=== PATIENT | male | born 1955 | race Caucasian/White ===

== ENCOUNTER → 2021-03-08 13:26 | Outpatient (BNVA) | payer BC, SELFPAY | PROVIDERS: PCP Internal Medicine; Visit Provider Hospitalist ==

== ENCOUNTER 2021-03-24 04:00 | Emergency (ER) | payer BC, SELFPAY ==
[2021-03-24 04:04] VITALS: BP 144/80; PULSE 100; RESP 16; TEMP 35.8; O2SAT 98; BMI 28.5
[2021-03-24 05:00] LABS: COVID-19 Test Negative (Negative); IDNOW Serial# 9DD0AD1C
--- NOTE | 2021-03-24 05:08 | ED.SKABFB ---
HPI - Skin/Abscess/Foreign Bdy General Chief complaint: Allergic Reaction Stated complaint: allergic reaction? body covered in hives Time Seen by Provider: 03/24/21 04:18 Source: patient Mode of arrival: ambulatory History of Present Illness HPI narrative: 65-year-old male with history of psoriasis presents with noting a rash to his bilateral upper and lower extremities as well as his back an abdomen that started yesterday at 11:00 a.m.. He denies any recent changes or adjustments in his medications, denies any new food consumption and denies any associated lotion/so/colognes/closing/laundry detergent and denies fever, chills, lip/tongue/facial swelling and denies any shortness of breath or chest pain/palpitations. Patient states that he is been itching nonstop and took 2 doses of 25 mg of Benadryl yesterday. Related Data Home Medications Medication Instructions Recorded Confirmed azelastine 137 mcg (0.1 %) nasal 2 spray INTRANASAL BID 03/08/21 spray aerosol epinephrine 0.3 mg/0.3 mL IM ONCE 03/08/21 injection, auto-injector hydrochlorothiazide 25 mg tablet 25 mg PO DAILY 03/08/21 losartan 100 mg tablet 100 mg PO DAILY 03/08/21 Previous Rx's Medication Instructions Recorded prednisone 20 mg tablet 20 mg PO DAILY #3 tab 03/24/21 Allergies Allergy/AdvReac Type Severity Reaction Status Date / Time No Known Allergies Allergy Verified 03/24/21 04:09 Review of Systems Review of Systems: Pertinent positives and negatives as stated in HPI 10 point review of systems is otherwise negative. [facility] Past Medical History Source: nursing notes reviewed Medical History Asbestos-induced pleural plaque Bronchiectasis Emphysema of lung Psoriasis Pulmonary nodule Social History Social History Patient Tobacco Use Status: Former Tobacco user Advance Directives: No Physical Exam Vital Signs: Vital Signs: Last Vital Signs Temp 98.3 F 03/24/21 05:52 Pulse 97 03/24/21 07:08 Resp 16 03/24/21 07:08 BP 156/88 H 03/24/21 07:08 Pulse Ox 97 03/24/21 07:08 BMI result Body Mass Index 28.5 VITAL SIGNS: Reviewed. GENERAL: Well developed, well nourished, in no acute distress. HEAD: Normocephalic/atraumatic EYES: PERRLA, EOMI intact without pain, no nystagmus/pallor/icterus noted OROPHARYNX: no oral lesions noted, posterior pharynx clear NECK: Supple, no adenopathy LUNGS: Normal breath sounds. No adventitious sounds or accessory muscle use. SpO2<97> CARDIOVASCULAR: Regular rate and rhythm without noted murmurs, no JVD or lower extremity edema. ABDOMEN: Soft, non-tender, non-distended with bowel sounds. MUSCULOSKELETAL: No tenderness, deformities, or effusions noted on gross inspection. EXTREMITIES: No cyanosis, clubbing or edema. SKIN: Inspection of the skin reveals rash 2 proximal arms and legs as well as stomach and back without jaundice NEUROLOGIC: Alert and oriented x 4. Strength and sensation to light touch were grossly intact x 4. Course Course Course Narrative: 65-year-old male with history and clinical presentation consistent with possible psoriatic rash, patient will be treated with empiric prednisone and Benadryl this time and strongly encouraged follow-up with his mailroom coordinator. Patient discharged home in stable condition. MDM - Skin/Abscess/Foreign Bdy Lab Data Labs: Lab Results 03/24/21 Range/Units 04:35 COVID-19 (FERNANDO) Negative (Negative) COVID-19 Clin Com See Note Discharge Plan Discharge Clinical Impression: Rash Patient Disposition: Home, Self-Care Instructions: Acute Rash (ED) Additional Instructions: 1. Resume all home medications as prescribed. 2. Recommend using [id number] Benadryl as directed on the outside packaging over the next 24 hours, but you should contact your primary care provider/mailroom coordinator this morning for a follow-up appointment. Return to the ER for worsening symptoms. Prescriptions: New prednisone 20 mg tablet 20 mg PO DAILY Qty: 3 RF: 0 No Action losartan 100 mg tablet 100 mg PO DAILY RF: 0 hydrochlorothiazide 25 mg tablet 25 mg PO DAILY RF: 0 epinephrine 0.3 mg/0.3 mL auto-injector IM ONCE RF: 0 azelastine 137 mcg (0.1 %) aerosol,spray 2 spray intranasal BID RF: 0 Interventions: ED Discharge Assessment Last Done: 03/24/21 07:11 Discharge Date/Time: 03/24/21 07:12
[2021-03-24 05:52] VITALS: BP 151/87; PULSE 110; RESP 17; TEMP 36.8; O2SAT 96
[2021-03-24] MEDS: predniSONE 20 MG TABLET PO (06:23)
--- NOTE | 2021-03-24 06:26 | PC.NURSE ---
pt refused benadryl so that he would be able to drive himself home, states he will take 50mg benadryl when he gets home. dr valencia aware.
[2021-03-24 07:08] VITALS: BP 156/88; PULSE 97; RESP 16; O2SAT 97
== END 2021-03-24 07:12 | disposition home or self-care (01) ==
PROVIDERS: Emergency Provider Student in an Organized Health Care Education/Training Program
DX: R21 Rash and other nonspecific skin eruption (principal); Z20.822 Contact with and (suspected) exposure to COVID-19
CPT/HCPCS: 87635; 99283; Q0163

== ENCOUNTER 2021-10-28 15:12 | Outpatient (REF) | payer BC, MEDICARE, SELFPAY ==
--- NOTE | ~2021-10-28 | CT_ITS ---
EXAMINATION: CT CHEST WITHOUT CONTRAST CLINICAL INFORMATION: Follow-up pulmonary nodule and pleural plaques COMPARISON: Previous chest CT December 2015 TECHNIQUE: Multidetector volumetric CT imaging of the chest was done. Axial MIP volume rendering provided. Sagittal and coronal reformatted images were obtained. This CT examination was performed using dose optimization techniques as appropriate, variously including the following: *Automated exposure control *Adjustment of mA and/or kV according to patient size (this includes techniques or standardized protocols for targeted exams where dose is matched to indication/reason for exam; i.e. extremities or head) *Use of iterative reconstruction technique DLP: 251 mGy-cm FINDINGS: LUNGS: There is biapical pleural and parenchymal scarring. There is mild paraseptal emphysema. There is a 3 mm calcified right upper lobe nodule axial image 3 1 series 12. There is a 2 mm right upper lobe nodule axial image 100 series 12. There is a 4 mm partially calcified peripheral or subpleural left upper lobe nodule axial image 145 series 12. There is scarring or subsegmental atelectasis at both lung bases. No endobronchial or endotracheal lesion is seen. No evidence of emphysema or significant interstitial lung disease. MEDIASTINUM: Small mediastinal lymph nodes. No enlarged lymph nodes. Coronary artery calcification. The mediastinum is otherwise normal. PLEURA: Bilateral calcified and noncalcified pleural plaques that are stable. No pleural effusion. AXILLA: No lymphadenopathy. UPPER ABDOMEN: Unremarkable. OSSEOUS STRUCTURES: There are degenerative changes of the spine. There is slight loss of height of T11 vertebral body that is stable. CT/CT chest wo con IMPRESSION: Stable calcified and noncalcified pleural plaques. Stable small pulmonary nodules. Coronary artery calcification. Fleischner guidelines were followed.
== END 2021-10-28 15:13 | disposition home or self-care (01) ==
LOC: HO.CT 15:12
PROVIDERS: PCP Internal Medicine; Visit Provider Hospitalist
DX: J92.0 Pleural plaque with presence of asbestos (principal); R91.1 Solitary pulmonary nodule; J47.9 Bronchiectasis, uncomplicated
CPT/HCPCS: 71250

== ENCOUNTER 2022-12-12 14:32 | Outpatient (AMB) | payer BC, SELFPAY ==
[2022-12-12 14:36] VITALS: PULSE 82; O2SAT 94
--- NOTE | 2022-12-12 14:36 | MHC.OFFVIS ---
Intake Vital Signs 12/12/22 14:36 Height 5 ft 11 in Weight 215 lb BMI 30.0 Pulse 82 Pulse Source Pulse Oximeter Pulse Oximetry (%) 94 Oxygen Delivery Method Room Air Intake Visit Reasons: Pulmonary nodule Venereal Disease Investigator Required: No Allergies ibuprofen Allergy (Severe, Verified 12/12/22 14:37) Hives HPI HPI Comments History of Present Illness Details The patient is a 67-year-old gentleman, former smoker was found to have abnormal CT scan of the chest. as a young man the patient did work with this has been fixing replacing both ears and exposed to significant amount of asbestos throughout his life. Patient also did have. Where he was smoking cigarettes. However he quickly stopped many years ago. He did have a CT scan of the chest initially at [facility] back in 2016 demonstrating the evidence of the asbestos related lung disease along with pulmonary nodules. Later on he had a repeat CT scan of the chest done at [place] which demonstrated multiple pulmonary nodules subcentimeter in size along with the asbestos related lung disease. He was also documented patient had some degree of bronchiectasis and also small hiatal hernia. His last CT scan of the chest was done back in August 2020 demonstrating similar findings. He also underwent pulmonary function studies which were personally by me demonstrating no obstructive ventilatory defects and a low normal total lung capacity. The patient also had a mild diffusion impairment likely secondary to the underlying parenchymal disease. At this point the patient has been doing well and staying active. He does not use any respiratory therapy in on believe he would benefit from any at this time. In regards of the bronchiectasis the patient denies any productive cough or chest congestion. indeed this may have been a result of underlying asbestos related lung disease and also could have been a result of some degree of microaspiration. The patient was reported to have a small hiatal hernia as well at some point on a CT scan which increases his risk for micro aspirations. Clinically though the patient is to continues to do well. He needs to continue with reflux diet at this point will follow-up with a repeat CT scan of the chest sometime in the fall of 2021. if the patient develops any worsening symptoms prior to that he is to call the office for an earlier evaluation. 11/29/2021 the patient is here for a pulmonary follow-up visit. Overall he is doing well. He is trying to stay active. The patient did have his PFTs at [facility] and we did review her with him. Appears that he has a low normal total lung capacity and a mild diffusion impairment. Is his recent CT scan also was reviewed by me and I did review with the patient. The patient does have a asbestos related lung disease with asbestos plaques and also has some minimal scarring of the left base which could be contributing to date diffusion impairment. Otherwise is pulmonary nodules have been stable for now numerous years and do not appear to be concerning for any malignant process. Still with the asbestos related lung disease we have to monitor the plaques closely. Patient is to increase exercise activity. Will follow-up in 1 year with a chest x-ray and likely spirometry. 12/12/2022 the patient is here for a pulmonary follow-up visit. He continues to feel poorly. Having dyspnea on exertion. We again reviewed his CT scan of the chest back from October 2021 demonstrating pulmonary nodules in addition to that a significant amount of asbestos plaques and some degree of interstitial lung disease at the bases. Consistent with some scarring. The patient was going to have a chest x-ray but in view of the worsening symptoms will request a repeat CT scan at the chest at this time. The patient also will need pulmonary function studies to assess his underlying worsening dyspnea symptoms. On further questioning also he is complaining of some daytime drowsiness. His is with him and she complains that he has severe snoring and also apneic episodes that have been documented. Will go ahead and request a home sleep study at this time. He also recently had a stress test the patient states that he had a few areas were abnormal. He is currently on medication for secondary prevention of any heart disease and will follow-up with cardiology. The patient indeed may need additional testing if indeed his stress test was abnormal. The patient follow-up after his CT scan PFTs and home sleep study. [facility] Medical History (Updated 12/12/22 @ 22:05 by Alberto Olsen MD) Pulmonary fibrosis, unspecified Psoriasis Bronchiectasis Emphysema of lung Asbestos-induced pleural plaque Pulmonary nodule Social History (Updated 11/29/21 @ 13:03 by KAYLEN Lowe) Patient Tobacco Use Status: Former Tobacco user Tobacco use type: Cigarette Years Smoked: 4 Years Review of Systems Const Denies night sweats ENT Denies change in voice, Denies lip swelling, Denies mouth pain, Reports nasal congestion, Reports nasal discharge and Denies tongue swelling Card Denies chest pain and Reports dyspnea on exertion Resp Reports cough and Reports dyspnea on exertion GI Denies abdominal pain Musc Denies no additional complaints Neuro Denies Neuro-related abnormal movements Psych Denies no additional complaints Ino/Lymph Denies easy bleeding and Denies lymphadenopathy Aller/Immun Denies lip swelling and Denies tongue swelling Physical Exam Vital Signs: Last Vital Signs Pulse 82 12/12/22 14:36 Pulse Ox 94 12/12/22 14:36 Oxygen Delivery Method Room Air 12/12/22 14:36 BMI result Body Mass Index 30.0 Const General: alert Neck Neck: Yes normal visual inspection, Yes full ROM and Yes no lymphadenopathy Chest Chest palpation & inspection: normal inspection of the chest Resp Effort & Inspection: normal respiratory effort Auscultation: diminished lung sounds Cardio Rate: regular rate Rhythm: regular rhythm Heart sounds: S1 normal heart sound present and S2 normal heart sound present GI Palpation (GI): Soft to palpation and nontender Auscultation: normal bowel sounds Skin General skin exam: rashes and/or lesions noted Assessment & Plan Assessment & Plan (1) Pulmonary nodule: Code(s): R91.1 - Solitary pulmonary nodule (2) Asbestos-induced pleural plaque: Code(s): J92.0 - Pleural plaque with presence of asbestos (3) Emphysema of lung: Code(s): J43.9 - Emphysema, unspecified Qualifiers: Emphysema type: centrilobular Qualified Code(s): J43.2 - Centrilobular emphysema (4) Bronchiectasis: Code(s): J47.9 - Bronchiectasis, uncomplicated Qualifiers: Bronchiectasis type: uncomplicated Qualified Code(s): J47.9 - Bronchiectasis, uncomplicated (5) Pulmonary fibrosis, unspecified: Comment: ?some degree of asbestosis Code(s): J84.10 - Pulmonary fibrosis, unspecified Plan PFTs CT chest Cardiology F/U ?additional testing to assess for CAD consider starting pulmonary rehab once cardiac w/u is completed F/U 2 months Orders: Orders PFT pulmonary function test Today J84.10 - Pulmonary fibrosis, unspecified, J92.0 - Pleural plaque with presence of asbestos, R91.1 - Solitary pulmonary nodule CT chest wo IV con Today J84.10 - Pulmonary fibrosis, unspecified, J92.0 - Pleural plaque with presence of asbestos, R91.1 - Solitary pulmonary nodule Coding Level of Care Code Est Pt Level 4 (34189) Diagnoses Pulmonary nodule R91.1 Asbestos-induced pleural plaque J92.0 Centrilobular emphysema J43.2 Emphysema type: centrilobular Bronchiectasis without complication J47.9 Bronchiectasis type: uncomplicated Pulmonary fibrosis, unspecified J84.10 Time Spent (min) 18
== END 2022-12-12 15:01 | disposition home or self-care (01) ==
PROVIDERS: PCP Internal Medicine; Visit Provider Hospitalist
DX: R91.1 Solitary pulmonary nodule (principal); J92.0 Pleural plaque with presence of asbestos; J43.2 Centrilobular emphysema; J47.9 Bronchiectasis, uncomplicated; J84.10 Pulmonary fibrosis, unspecified
CPT/HCPCS: 99214

== ENCOUNTER → 2022-12-12 14:32 | Outpatient (BNVA) | payer BC, MEDICARE, SELFPAY | PROVIDERS: PCP Internal Medicine; Visit Provider Hospitalist ==

== ENCOUNTER 2023-01-15 14:58 | Outpatient (REF) | payer BC, SELFPAY ==
--- NOTE | ~2023-01-15 | CT_ITS ---
EXAMINATION: CT CHEST WITHOUT CONTRAST CLINICAL INFORMATION: Pulmonary fibrosis COMPARISON: Previous chest CT most recent October 2021 TECHNIQUE: Multidetector volumetric CT imaging of the chest was done. Axial MIP volume rendering provided. Sagittal and coronal reformatted images were obtained. This CT examination was performed using dose optimization techniques as appropriate, variously including the following: *Automated exposure control *Adjustment of mA and/or kV according to patient size (this includes techniques or standardized protocols for targeted exams where dose is matched to indication/reason for exam; i.e. extremities or head) *Use of iterative reconstruction technique DLP: 231 mGy-cm FINDINGS: LUNGS: There is mild increased peripheral interstitial markings with increased reticulation at the lung bases versus dependent atelectasis. There may be mild bilateral lower lobe traction bronchiolectasis. There is a small 2 mm peripheral or subpleural calcified right upper lobe nodule axial image 51 series 9. There is a small 2 mm right upper lobe nodule axial image 92 series 9. 2 adjacent small calcified 2 mm lingular nodules axial image 134 These are stable. No endobronchial or endotracheal lesion. MEDIASTINUM: Small mediastinal lymph nodes. No enlarged lymph nodes. Normal heart size. No pericardial effusion. CORONARY ARTERY CALCIFICATION: Mild PLEURA: Mild bilateral pleural thickening and calcification. This is similar to previous exam. Appearance is suggestive of asbestos related pleural disease. No pleural mass or pleural effusion. AXILLA: No lymphadenopathy. UPPER ABDOMEN: Diverticulosis of the colon OSSEOUS STRUCTURES: Degenerative changes of the spine. Slight loss of height of the T11 vertebral body questionable for old mild compression fracture. CT/CT chest wo IV con IMPRESSION: Mild increased peripheral interstitial markings at the lung bases versus dependent atelectasis. Scattered areas of mild pleural thickening and calcification suggestive of asbestos related pleural disease. Stable small pulmonary nodules. Fleischner guidelines were followed.
== END 2023-01-15 14:59 | disposition home or self-care (01) ==
LOC: HO.CT 14:58
PROVIDERS: PCP Internal Medicine; Visit Provider Hospitalist
DX: R91.1 Solitary pulmonary nodule (principal); J92.0 Pleural plaque with presence of asbestos; J84.10 Pulmonary fibrosis, unspecified
CPT/HCPCS: 71250

== ENCOUNTER 2023-01-22 15:03 | Outpatient (REF) | payer BC, SELFPAY ==
--- NOTE | 2023-01-22 15:52 | PFT_ITS ---
FLOWS: 1. FEV1 76% of predicted at 2.53 L. 2. FVC 93% of predicted at 4.06 L. 3. FEV1 to FVC ratio of 0.63. 4. Positive bronchodilator response. LUNG VOLUMES: 1. Total lung capacity 80% of predicted at 5.92 L. 2. Residual volume 73% of predicted at 1.86 L. 3. Slow vital capacity 85% of predicted at 4.06 L. 4. Expiratory reserve volume 51% of predicted at 0.68 L. 5. Diffusion capacity is normal. IMPRESSION: Moderate obstructive ventilatory defect with positive bronchodilator response. Darrin Hernández MD AP/MODL / [id number] MTDD
== END 2023-01-22 15:04 | disposition home or self-care (01) ==
LOC: HO.RESP 15:03
PROVIDERS: PCP Internal Medicine; Visit Provider Hospitalist
DX: J84.10 Pulmonary fibrosis, unspecified (principal); R91.1 Solitary pulmonary nodule; J92.0 Pleural plaque with presence of asbestos
CPT/HCPCS: 94010; 94727; 94729

== ENCOUNTER → 2023-01-22 15:52 | Outpatient (BNV) | payer BC, SELFPAY | PROVIDERS: PCP Internal Medicine; Visit Provider Internal Medicine Pulmonary Disease | DX: J84.10 Pulmonary fibrosis, unspecified (principal) | CPT/HCPCS: 94060; 94727 ==

== ENCOUNTER 2023-02-12 15:28 | Outpatient (AMB) | payer BC, SELFPAY ==
[2023-02-12 15:36] VITALS: PULSE 75; O2SAT 93
--- NOTE | 2023-02-12 15:36 | A.OFFVIS_ITS ---
Intake Vital Signs 02/12/23 15:36 Height 5 ft 11 in Weight 215 lb BMI 30.0 Pulse 75 Pulse Source Pulse Oximeter Pulse Oximetry (%) 93 Oxygen Delivery Method Room Air Intake Visit Reasons: Follow up SANIA, PFT Shipping And Receiving Specialist Required: No Allergies ibuprofen Allergy (Severe, Verified 02/12/23 15:37) Hives HPI HPI Comments History of Present Illness Details The patient is a 67-year-old gentleman, former smoker was found to have abnormal CT scan of the chest. as a young man the patient did work with this has been fixing replacing both ears and exposed to significant amount of asbestos throughout his life. Patient also did have. Where he was smoking cigarettes. However he quickly stopped many years ago. He did have a CT scan of the chest initially at [facility] back in 2016 demonstrating the evidence of the asbestos related lung disease along with pulmonary nodules. Later on he had a repeat CT scan of the chest done at [place] which demonstrated multiple pulmonary nodules subcentimeter in size along with the asbestos related lung disease. He was also documented patient had some degree of bronchiectasis and also small hiatal hernia. His last CT scan of the chest was done back in August 2020 demonstrating similar findings. He also underwent pulmonary function studies which were personally by me demonstrating no obstructive ventilatory defects and a low normal total lung capacity. The patient also had a mild diffusion impairment likely secondary to the underlying parenchymal disease. At this point the patient has been doing well and staying active. He does not use any respiratory therapy in on believe he would benefit from any at this time. In regards of the bronchiectasis the patient denies any productive cough or chest congestion. indeed this may have been a result of underlying asbestos related lung disease and also could have been a result of some degree of microaspiration. The patient was reported to have a small hiatal hernia as well at some point on a CT scan which increases his risk for micro aspirations. Clinically though the patient is to continues to do well. He needs to continue with reflux diet at this point will follow-up with a repeat CT scan of the chest sometime in the fall of 2021. if the patient develops any worsening symptoms prior to that he is to call the office for an earlier evaluation. 11/29/2021 the patient is here for a pulm onary follow-up visit. Overall he is doing well. He is trying to stay active. The patient did have his PFTs at [place] and we did review her with him. Appears that he has a low normal total lung capacity and a mild diffusion impairment. Is his recent CT scan also was reviewed by me and I did review with the patient. The patient does have a asbestos related lung disease with asbestos plaques and also has some minimal scarring of the left base which could be contributing to date diffusion impairment. Otherwise is pulmonary nodules have been stable for now numerous years and do not appear to be concerning for any malignant process. Still with the asbestos related lung disease we have to monitor the plaques closely. Patient is to increase exercise activity. Will follow-up in 1 year with a chest x-ray and likely spirometry. 12/12/2022 the patient is here for a pul monary follow-up visit. He continues to feel poorly. Having dyspnea on exertion. We again reviewed his CT scan of the chest back from October 2021 demonstrating pulmonary nodules in addition to that a significant amount of asbestos plaques and some degree of interstitial lung disease at the bases. Consistent with some scarring. The patient was going to have a chest x-ray but in view of the worsening symptoms will request a repeat CT scan at the chest at this time. The patient also will need pulmonary function studies to assess his underlying worsening dyspnea symptoms. On further questioning also he is complaining of some daytime drowsiness. His is with him and she complains that he has severe snoring and also apneic episodes that have been documented. Will go ahead and request a home sleep study at this time. He also recently had a stress test the patient states that he had a few areas were abnormal. He is currently on medication for secondary prevention of any heart disease and will follow-up with cardiology. The patient indeed may need additional testing if indeed his stress test was abnormal. The patient follow-up after his CT scan PFTs and home sleep study. 02/12/2023 the [facility] The patient overall has been doing well. Still having some dyspnea on exertion. We did review his pulmonary function studies. Although we had to repeat a spirometry because it was a little bit abnormal. It appears that he does not have any obstructive ventilatory defects. His total lung capacity is low normal but likely secondary to underlying asbestos related lung disease. In addition to that his diffusing capacity is within normal limits. Overall reassuring. We did review his CT scan of the chest. It appears that the asbestos plaques are stable. He does have some interstitial lung changes at the bases but not significant change from last year. They are more significant when compared to 2016 however. Therefore, will request a repeat CT scan in a year's time to assess interstitial lung disease in the asbestos lung disease. If the patient develops any worsening symptoms prior to that he will call for an earlier asses sment. As far as the apnea the patient is recommended to sleep on his side. Positional therapy BT. The patient also can consider an oral mandibular advancement device or an elastic mandibular device in order to help him with his snoring. If the patient continues symptomatic will go ahead and order sleep study. [facility] Medical History (Updated 12/12/22 @ 22:05 by Alberto Olsen MD) Pulmonary fibrosis, unspecified Psoriasis Bronchiectasis Emphysema of lung Asbestos-induced pleural plaque Pulmonary nodule Social History (Updated 11/29/21 @ 13:03 by KAYLEN Lowe) Patient Tobacco Use Status: Former Tobacco user Tobacco use type: Cigarette Years Smoked: 4 Years Review of Systems Const Denies night sweats ENT Denies change in voice, Denies lip swelling, Denies mouth pain, Reports nasal congestion, Reports nasal discharge and Denies tongue swelling Card Denies chest pain and Reports dyspnea on exertion Resp Reports cough and Reports dyspnea on exertion GI Denies abdominal pain Musc Denies no additional complaints Neuro Denies Neuro-related abnormal movements Psych Denies no additional complaints Ino/Lymph Denies easy bleeding and Denies lymphadenopathy Aller/Immun Denies lip swelling and Denies tongue swelling Physical Exam Vital Signs: Last Vital Signs Pulse 75 02/12/23 15:36 Pulse Ox 93 02/12/23 15:36 Oxygen Delivery Method Room Air 02/12/23 15:36 BMI result Body Mass Index 30.0 Const General: alert Neck Neck: Yes normal visual inspection, Yes full ROM and Yes no lymphadenopathy Chest Chest palpation & inspection: normal inspection of the chest Resp Effort & Inspection: normal respiratory effort Auscultation: diminished lung sounds Cardio Rate: regular rate Rhythm: regular rhythm Heart sounds: S1 normal heart sound present and S2 normal heart sound present GI Palpation (GI): Soft to palpation and nontender Auscultation: normal bowel sounds Skin General skin exam: rashes and/or lesions noted Assessment & Plan Assessment & Plan (1) Pulmonary nodule: Code(s): R91.1 - Solitary pulmonary nodule (2) Asbestos-induced pleural plaque: Code(s): J92.0 - Pleural plaque with presence of asbestos (3) Emphysema of lung: Code(s): J43.9 - Emphysema, unspecified Qualifiers: Emphysema type: centrilobular Qualified Code(s): J43.2 - Centrilobular emphysema (4) Bronchiectasis: Code(s): J47.9 - Bronchiectasis, uncomplicated Qualifiers: Bronchiectasis type: uncomplicated Qualified Code(s): J47.9 - Bronchiectasis, uncomplicated (5) Pulmonary fibrosis, unspecified: Comment: ?some degree of asbestosis Code(s): J84.10 - Pulmonary fibrosis, unspecified Plan CT chest in 1 year Cardiology F/U ?additional testing to assess for CAD consider starting pulmonary rehab once cardiac w/u is completed F/U 10-12 months Orders: Orders CT chest wo IV con 364 Days J84.10 - Pulmonary fibrosis, unspecified, J92.0 - Pleural plaque with presence of asbestos, R91.1 - Solitary pulmonary nodule Coding Level of Care Code Est Pt Level 4 (26285) Diagnoses Pulmonary nodule R91.1 Asbestos-induced pleural plaque J92.0 Centrilobular emphysema J43.2 Emphysema type: centrilobular Bronchiectasis without complication J47.9 Bronchiectasis type: uncomplicated Pulmonary fibrosis, unspecified J84.10 Time Spent (min) 18
== END 2023-02-12 16:17 | disposition home or self-care (01) ==
PROVIDERS: PCP Internal Medicine; Visit Provider Hospitalist
DX: R91.1 Solitary pulmonary nodule (principal); J92.0 Pleural plaque with presence of asbestos; J43.2 Centrilobular emphysema; J47.9 Bronchiectasis, uncomplicated; J84.10 Pulmonary fibrosis, unspecified
CPT/HCPCS: 99214

== ENCOUNTER → 2023-02-12 15:28 | Outpatient (BNVA) | payer BC, SELFPAY | PROVIDERS: PCP Internal Medicine; Visit Provider Hospitalist ==

== ENCOUNTER 2023-12-04 15:34 | Emergency (ER) | payer MEDICARE, SELFPAY ==
[2023-12-04 15:53] VITALS: BP 138/94; PULSE 87; RESP 16; TEMP 36.3; O2SAT 98; BMI 30.3
--- NOTE | 2023-12-04 19:35 | PC.NURSE ---
was not present in [facility] or in [facility] bathroom.
== END 2023-12-04 19:35 | disposition left against medical advice (07) ==
LOC: HO.ED 19:35
PROVIDERS: Emergency Provider Emergency Medicine
DX: S81.011A Laceration without foreign body, right knee, initial encounter (principal); W26.8XXA Contact with other sharp object(s), not elsewhere classified, initial encounter; Y93.9 Activity, unspecified; Y92.9 Unspecified place or not applicable; Y99.9 Unspecified external cause status
CPT/HCPCS: 99281; 99282

== ENCOUNTER 2024-02-11 07:25 | Outpatient (REF) | payer MEDICARE, SELFPAY ==
--- NOTE | ~2024-02-11 | CT_ITS ---
EXAMINATION: CT CHEST WITHOUT CONTRAST CLINICAL INFORMATION: Pulmonary nodule follow up. COMPARISON: Most recent chest CT dated 01/15/2023. TECHNIQUE: Multidetector volumetric CT imaging of the chest was done. Axial MIP volume rendering provided. Sagittal and coronal reformatted images were obtained. This CT examination was performed using dose optimization techniques as appropriate, variously including the following: *Automated exposure control *Adjustment of mA and/or kV according to patient size (this includes techniques or standardized protocols for targeted exams where dose is matched to indication/reason for exam; i.e. extremities or head) *Use of iterative reconstruction technique DLP: 250 mGy-cm FINDINGS: CORE INSERTER: Unremarkable. LUNGS: Tiny pulmonary nodules are unchanged. No new pulmonary nodule or mass. No focal airspace consolidation. The central airways are patent. MEDIASTINUM: No cardiomegaly. No pericardial effusion. No thoracic aortic dilatation. No significant superior mediastinal or hilar lymphadenopathy. Unremarkable thyroid. CORONARY ARTERY CALCIFICATION: Present. PLEURA: There is no pleural effusion. There are a few scattered pleural calcifications, unchanged. AXILLA: No lymphadenopathy. UPPER ABDOMEN: Unremarkable. OSSEOUS STRUCTURES: No acute osseous abnormality. CT/CT chest wo IV con IMPRESSION: 1. Tiny pulmonary nodules are unchanged. 2. No new pulmonary nodule, mass, or airspace consolidation. 3. No lymphadenopathy. Fleischner guidelines were followed. Electronically signed by: Elan Carpenter MD 02/11/2024 11:14 AM [facility]
== END 2024-02-11 07:26 | disposition home or self-care (01) ==
LOC: HO.CT 07:25
PROVIDERS: Visit Provider Hospitalist
DX: R91.1 Solitary pulmonary nodule (principal); J84.10 Pulmonary fibrosis, unspecified; J92.0 Pleural plaque with presence of asbestos
CPT/HCPCS: 71250

== ENCOUNTER 2024-05-08 13:31 | Outpatient (AMB) | payer MEDICARE, SELFPAY ==
--- NOTE | 2024-05-08 13:32 | A.OFFVIS_ITS ---
Vital Signs 05/08/24 13:34 Height 5 ft 11 in Weight 218 lb 4.122 oz BMI 30.4 BP 140/78 H Blood Pressure Location Rt brachial Position Sitting Pulse 75 Pulse Source Pulse Oximeter Pulse Oximetry (%) 95 Oxygen Delivery Method Room Air Intake Visit Reasons: Chest Ct results Allergies ibuprofen Allergy (Severe, Verified 05/08/24 13:41) Hives bee pollen [bee stings] Allergy (Verified 05/08/24 13:41) Unknown HPI Comments Details: The patient is a 68-year-old gentleman, former smoker was found to have abnormal CT scan of the chest. as a young man the patient did work with this has been fixing replacing both ears and exposed to significant amount of asbestos throughout his life. Patient also did have. Where he was smoking cigarettes. However he quickly stopped many years ago. He did have a CT scan of the chest initially at [facility] back in 2016 demonstrating the evidence of the asbestos related lung disease along with pulmonary nodules. Later on he had a repeat CT scan of the chest done at [place] which demonstrated multiple pulmonary nodules subcentimeter in size along with the asbestos related lung disease. He was also documented patient had some degree of bronchiectasis and also small hiatal hernia. His last CT scan of the chest was done back in August 2020 demonstrating similar findings. He also underwent pulmonary function studies which were personally by me demonstrating no obstructive ventilatory defects and a low normal total lung capacity. The patient also had a mild diffusion impairment likely secondary to the underlying parenchymal disease. At this point the patient has been doing well and staying active. He does not use any respiratory therapy in on believe he would benefit from any at this time. In regards of the bronchiectasis the patient denies any productive cough or chest congestion. indeed this may have been a result of underlying asbestos related lung disease and also could have been a result of some degree of microaspiration. The patient was reported to have a small hiatal hernia as well at some point on a CT scan which increases his risk for micro aspirations. Clinically though the patient is to continues to do well. He needs to continue with reflux diet at this point will follow-up with a repeat CT scan of the chest sometime in the fall of 2021. if the patient develops any worsening symptoms prior to that he is to call the office for an earlier evaluation. 11/29/2021 the patient is here for a pulmonary follow-up visit. Overall he is doing well. He is trying to stay active. The patient did have his PFTs at [place] and we did review her with him. Appears that he has a low normal total lung capacity and a mild diffusion impairment. Is his recent CT scan also was reviewed by me and I did review with the patient. The patient does have a asbestos related lung disease with asbestos plaques and also has some minimal scarring of the left base which could be contributing to date diffusion impairment. Otherwise is pulmonary nodules have been stable for now numerous years and do not appear to be concerning for any malignant process. Still with the asbestos related lung disease we have to monitor the plaques closely. Patient is to increase exercise activity. Will follow-up in 1 year with a chest x-ray and likely spirometry. 12/12/2022 the patient is here for a pulmonary follow-up visit. He continues to feel poorly. Having dyspnea on exertion. We again reviewed his CT scan of the chest back from October 2021 demonstrating pulmonary nodules in addition to that a significant amount of asbestos plaques and some degree of interstitial lung disease at the bases. Consistent with some scarring. The patient was going to have a chest x-ray but in view of the worsening symptoms will request a repeat CT scan at the chest at this time. The patient also will need pulmonary function studies to assess his underlying worsening dyspnea symptoms. On further questioning also he is complaining of some daytime drowsiness. His is with him and she complains that he has severe snoring and also apneic episodes that have been documented. Will go ahead and request a home sleep study at this time. He also recently had a stress test the patient states that he had a few areas were abnormal. He is currently on medication for secondary prevention of any heart disease and will follow-up with cardiology. The patient indeed may need additional testing if indeed his stress test was abnormal. The patient follow-up after his CT scan PFTs and home sleep study. 02/12/2023 the patient is here for pulmonary follow-up visit. The patient overall has been doing well. Still having some dyspnea on exertion. We did review his pulmonary function studies. Although we had to repeat a spirometry because it was a little bit abnormal. It appears that he does not have any obstructive ventilatory defects. His total lung capacity is low normal but likely secondary to underlying asbestos related lung disease. In addition to that his diffusing capacity is within normal limits. Overall reassuring. We did review his CT scan of the chest. It appears that the asbestos plaques are stable. He does have some interstitial lung changes at the bases but not significant change from last year. They are more significant when compared to 2016 however. Therefore, will request a repeat CT scan in a year's time to assess interstitial lung disease in the asbestos lung disease. If the patient develops any worsening symptoms prior to that he will call for an earlier assessment. As far as the apnea the patient is recommended to sleep on his side. Positional therapy BT. The patient also can consider an oral mandibular advancement device or an elastic mandibular device in order to help him with his snoring. If the patient continues symptomatic will go ahead and order sleep study. 05/08/2024 The patient overall has been doing well. Still having some dyspnea on exertion. Mild in severity. He had a complete cardiac work up, per report it was good. We did review his CT scan of the chest. It appears that the asbestos plaques are stable. He does have some interstitial lung changes at the bases but not significant change from last year. They are more significant when compared to 2016. No need to serial CT scan based on the stanility. Plan to f/u in 1 yr with CXR. However, if any new or concerning symptoms he will need to call for an earlier visit. [facility] Medical History (Updated 12/12/22 @ 22:05 by Alberto Olsen MD) Pulmonary fibrosis, unspecified Psoriasis Bronchiectasis Emphysema of lung Asbestos-induced pleural plaque Pulmonary nodule Social History Patient Tobacco Use Status: Former Tobacco user Tobacco use type: Cigarette Years Smoked: 4 Years Review of Systems Const Denies night sweats ENT Denies change in voice, Denies lip swelling, Denies mouth pain, Reports nasal congestion, Reports nasal discharge and Denies tongue swelling Card Denies chest pain and Reports dyspnea on exertion Resp Reports cough and Reports dyspnea on exertion GI Denies abdominal pain Musc Denies no additional complaints Neuro Denies Neuro-related abnormal movements Psych Denies no additional complaints Ino/Lymph Denies easy bleeding and Denies lymphadenopathy Aller/Immun Denies lip swelling and Denies tongue swelling Physical Exam Vital Signs: Last Vital Signs Pulse 75 05/08/24 13:34 Pulse Ox 95 05/08/24 13:34 Oxygen Delivery Method Room Air 05/08/24 13:34 BMI result Body Mass Index 30.4 Const General: alert Neck Neck: Yes normal visual inspection, Yes full ROM and Yes no lymphadenopathy Chest Chest palpation & inspection: normal inspection of the chest Resp Effort & Inspection: normal respiratory effort Auscultation: diminished lung sounds Cardio Rate: regular rate Rhythm: regular rhythm Heart sounds: S1 normal heart sound present and S2 normal heart sound present GI Palpation (GI): Soft to palpation and nontender Auscultation: normal bowel sounds Skin General skin exam: rashes and/or lesions noted Results Reviewed Results Reviewed: [address] [address] [address] Scan Report Signed Patient: Parveen Ramos MR#: [id number] : 1955 Acct:[id number] Age/Sex: 68 / M ADM Date: 02/11/24 Loc: HO.CT Attending Dr: Alberto Olsen MD Ordering Physician: Alberto Olsen MD Date of Service: 02/11/24 Procedure(s): CT chest wo IV con Accession Number(s): [id number] cc: Alberto Olsen MD~ EXAMINATION: CT CHEST WITHOUT CONTRAST CLINICAL INFORMATION: Pulmonary nodule follow up. COMPARISON: Most recent chest CT dated 01/15/2023. TECHNIQUE: Multidetector volumetric CT imaging of the chest was done. Axial MIP volume rendering provided. Sagittal and coronal reformatted images were obtained. This CT examination was performed using dose optimization techniques as appropriate, variously including the following: *Automated exposure control *Adjustment of mA and/or kV according to patient size (this includes techniques or standardized protocols for targeted exams where dose is matched to indication/reason for exam; i.e. extremities or head) *Use of iterative reconstruction technique DLP: 250 mGy-cm FINDINGS: WELDING INSPECTOR: Unremarkable. LUNGS: Tiny pulmonary nodules are unchanged. No new pulmonary nodule or mass. No focal airspace consolidation. The central airways are patent. MEDIASTINUM: No cardiomegaly. No pericardial effusion. No thoracic aortic dilatation. No significant superior mediastinal or hilar lymphadenopathy. Unremarkable thyroid. CORONARY ARTERY CALCIFICATION: Present. PLEURA: There is no pleural effusion. There are a few scattered pleural calcifications, unchanged. AXILLA: No lymphadenopathy. UPPER ABDOMEN: Unremarkable. OSSEOUS STRUCTURES: No acute osseous abnormality. CT/CT chest wo IV con IMPRESSION: 1. Tiny pulmonary nodules are unchanged. 2. No new pulmonary nodule, mass, or airspace consolidation. 3. No lymphadenopathy. Fleischner guidelines were followed. Electronically signed by: Elan Carpenter MD 02/11/2024 11:14 AM EST Workstation: [id number] Dictated By: Elan Carpenter MD Signed By: <Electronically signed by Elan Carpenter MD in OV> 02/11/24 1114 DD/ 0737 TD/TT: 02/11/24 0745 Paper Inspector: SR Assessment & Plan Assessment & Plan (1) Pulmonary nodule: Code(s): R91.1 - Solitary pulmonary nodule Category: Medical (2) Asbestos-induced pleural plaque: Code(s): J92.0 - Pleural plaque with presence of asbestos Category: Medical (3) Emphysema of lung: Code(s): J43.9 - Emphysema, unspecified Category: Medical Qualifiers: Emphysema type: centrilobular Qualified Code(s): J43.2 - Centrilobular emphysema (4) Pulmonary fibrosis, unspecified: Comment: ?some degree of asbestosis Code(s): J84.10 - Pulmonary fibrosis, unspecified Category: Medical Plan CT chest stable CXR in 1 yr F/U 12 months Coding Level of Care Code Est Pt Level 4 (56639) Diagnoses Pulmonary nodule R91.1 Asbestos-induced pleural plaque J92.0 Centrilobular emphysema J43.2 Emphysema type: centrilobular Pulmonary fibrosis, unspecified J84.10 Time Spent (min) 17
[2024-05-08 13:34] VITALS: BP 140/78; PULSE 75; O2SAT 95; BMI 30.4
== END 2024-05-08 14:05 | disposition home or self-care (01) ==
PROVIDERS: Visit Provider Hospitalist
DX: R91.1 Solitary pulmonary nodule (principal); J92.0 Pleural plaque with presence of asbestos; J43.2 Centrilobular emphysema; J84.10 Pulmonary fibrosis, unspecified
CPT/HCPCS: 99214

== ENCOUNTER → 2024-05-08 13:31 | Outpatient (BNVA) | payer MEDICARE, SELFPAY | PROVIDERS: Visit Provider Hospitalist | DX: J43.9 Emphysema, unspecified (principal); J43.2 Centrilobular emphysema; J84.10 Pulmonary fibrosis, unspecified; J92.0 Pleural plaque with presence of asbestos; R91.1 Solitary pulmonary nodule; Z87.891 Personal history of nicotine dependence | CPT/HCPCS: 99212 ==